=== PATIENT | female | born 1955 | race Caucasian/White ===

== ENCOUNTER 2022-05-28 10:39 | Observation (INO) ==
[2022-05-28] MEDS ORDERED: Lidocaine -MPF 2% 5 ML VIAL ONE (11:45)
[2022-05-28] MEDS ORDERED: *HR* Propofol 200 MG/20 ML VIAL IVP ONE ×3 (11:45→12:38)
[2022-05-28] MEDS ORDERED: CeFAZolin Syr 2,000MG/20 ML 2,000 MG/20 ML SYRINGE IVPB ONE (12:30)
[2022-05-28] MEDS ORDERED: CefOXitin 2,000 MG VIAL ONE (12:41)
[2022-05-28] MEDS ORDERED: *HR* Midazolam HCl 2 MG/2 ML VIAL ONE (12:47)
[2022-05-28] MEDS ORDERED: Ondansetron 4 MG/2 ML VIAL ONE (13:25)
[2022-05-28] MEDS ORDERED: *HR* OxyCODONE/APAP 5/325 TABLET PO PRN ×2 (13:54→14:05)
[2022-05-28] MEDS ORDERED: 0.9 % Sodium Chloride 1,000 ML IVC SCH (13:54)
[2022-05-28] MEDS ORDERED: Iopamidol - 370 500 ML MLS IVP ONE ×3 (13:54→13:56)
[2022-05-28] MEDS ORDERED: Ondansetron 4 MG/2 ML VIAL IVP PRN ×2 (13:54→14:05)
[2022-05-28] MEDS ORDERED: Morphine Sulfate Oral CONC 10 MG/0.5 ML ORAL.SYG SL PRN (13:54)
[2022-05-28] MEDS ORDERED: Naloxone 0.4 MG/ML INJ IVP PRN ×2 (13:54→14:05)
[2022-05-28 15:05] LABS: Basophils % 0.2 %; Eosinophils # 0.2 K/mcL (0.0-0.6); Eosinophils % 3.2 %; Hematocrit 41.3 % (35.3-44.9); Hemoglobin 12.5 g/dL (11.5-15.4); Immature Granulocytes % 0.2 % (0-4); Lymphocytes # 1.3 K/mcL (0.6-4.6); Mean Corpuscular HGB Conc 30.3 g/dL (31.6-35.5); Mean Corpuscular Hemoglobin 25.2 pg (28.0-33.3); Mean Corpuscular Volume 83.3 fL (83.0-100.0); Mean Platelet Volume 11.9 fL (9.4-12.4); Monocytes # 0.5 K/mcL (0.0-1.3); Monocytes % 10.3 %; Neutrophils # 2.7 K/mcL (1.6-8.9); Platelet Count 220 K/mcL (140-400); Red Blood Count 4.96 M/mcL (3.82-4.97); Red Cell Distribution Width 14.7 % (11.5-14.5); Segmented Neutrophils % 58.1 %; White Blood Count 4.7 K/mcL (4.3-11.1)
[2022-05-28] MEDS: 0.9 % Sodium Chloride 1,000 ML IVC SCH (15:10)
[2022-05-28 15:12] LABS: INR 1.1; Prothrombin Time 12.4 Seconds (9.4-12.1)
[2022-05-28] MEDS: Morphine Sulfate Oral CONC 10 MG/0.5 ML ORAL.SYG SL PRN ×2 (15:21→21:22)
[2022-05-28 15:24] LABS: BUN/Creatinine Ratio 14 (6-26); Blood Urea Nitrogen 11 mg/dL (8-23); Calcium 8.3 mg/dL (8.6-10.3); Carbon Dioxide 24 mEq/L (23-29); Chloride 110 mEq/L (98-107); Glucose 81 mg/dL (70-105); Osmolality,Calculated 290 (280-300); Potassium 4.1 mEq/L (3.5-5.1); Sodium 141 mEq/L (136-145); eGFR For African Americans > 60 (> 60); eGFR For Non-African Americans > 60 (> 60)
[2022-05-28] MEDS ORDERED: cefOXitin 1,000 MG in Water for inj. (sterile) 10 ML IVP SCH (16:00)
[2022-05-28] MEDS: ceFAZolin 1,000 MG in 0.9 % Sodium Chloride 10 ML IVP SCH (21:22)
[2022-05-29 02:02] LABS: Basophils % 0.1 %; Eosinophils % 0.1 %; Hematocrit 38.6 % (35.3-44.9); Hemoglobin 12.3 g/dL (11.5-15.4); Immature Granulocytes % 0.3 % (0-4); Lymphocytes # 0.9 K/mcL (0.6-4.6); Lymphocytes % 7.5 %; Mean Corpuscular HGB Conc 31.9 g/dL (31.6-35.5); Mean Corpuscular Hemoglobin 26.2 pg (28.0-33.3); Mean Corpuscular Volume 82.3 fL (83.0-100.0); Mean Platelet Volume 11.6 fL (9.4-12.4); Monocytes # 0.6 K/mcL (0.0-1.3); Neutrophils # 10.4 K/mcL (1.6-8.9); Platelet Count 233 K/mcL (140-400); Red Blood Count 4.69 M/mcL (3.82-4.97); Red Cell Distribution Width 14.7 % (11.5-14.5)
[2022-05-29 02:03] LABS: White Blood Count 11.9 K/mcL (4.3-11.1)
[2022-05-29 02:28] LABS: BUN/Creatinine Ratio 12 (6-26); Blood Urea Nitrogen 10 mg/dL (8-23); Calcium 8.2 mg/dL (8.6-10.3); Carbon Dioxide 25 mEq/L (23-29); Chloride 108 mEq/L (98-107); Glucose 105 mg/dL (70-105); Osmolality,Calculated 287 (280-300); Sodium 139 mEq/L (136-145); eGFR For African Americans > 60 (> 60); eGFR For Non-African Americans > 60 (> 60)
[2022-05-29] MEDS: 0.9 % Sodium Chloride 1,000 ML IVC SCH ×3 (03:03→20:25)
[2022-05-29] MEDS: ceFAZolin 1,000 MG in 0.9 % Sodium Chloride 10 ML IVP SCH ×3 (06:03→20:24)
[2022-05-29] MEDS: Pantoprazole 40 MG VIAL IVP SCH (08:29)
[2022-05-29] MEDS ORDERED: Pantoprazole 40 MG VIAL IVP SCH (09:00)
[2022-05-29] MEDS ORDERED: Acetaminophen 325 MG TABLET PO PRN (10:16)
[2022-05-29] MEDS: BuPROPion SR (12 HR) 100 MG TABLET PO SCH ×2 (11:07→20:24)
[2022-05-29] MEDS: *HR* Heparin 5,000 UNIT/ML VIAL SQ SCH ×2 (12:53→20:25)
[2022-05-29] MEDS ORDERED: *HR* Heparin 5,000 UNIT/ML VIAL SQ SCH (13:13)
[2022-05-29] MEDS: Morphine Sulfate Oral CONC 10 MG/0.5 ML ORAL.SYG SL PRN (23:34)
[2022-05-30 03:00] LABS: Basophils % 0.1 %; Eosinophils % 0.4 %; Hematocrit 35.2 % (35.3-44.9); Hemoglobin 10.9 g/dL (11.5-15.4); Immature Granulocytes % 0.4 % (0-4); Lymphocytes # 1.4 K/mcL (0.6-4.6); Lymphocytes % 15.5 %; Mean Corpuscular Hemoglobin 25.8 pg (28.0-33.3); Mean Corpuscular Volume 83.2 fL (83.0-100.0); Mean Platelet Volume 12.2 fL (9.4-12.4); Monocytes # 0.6 K/mcL (0.0-1.3); Monocytes % 6.6 %; Neutrophils # 7.1 K/mcL (1.6-8.9); Platelet Count 211 K/mcL (140-400); Red Blood Count 4.23 M/mcL (3.82-4.97); Red Cell Distribution Width 14.6 % (11.5-14.5); White Blood Count 9.3 K/mcL (4.3-11.1)
[2022-05-30 03:20] LABS: BUN/Creatinine Ratio 11 (6-26); Blood Urea Nitrogen 8 mg/dL (8-23); Calcium 7.8 mg/dL (8.6-10.3); Carbon Dioxide 25 mEq/L (23-29); Chloride 106 mEq/L (98-107); Glucose 109 mg/dL (70-105); Magnesium 1.9 mg/dL (1.6-2.6); Osmolality,Calculated 281 (280-300); Phosphorous 1.5 mg/dL (2.7-4.5); Potassium 3.5 mEq/L (3.5-5.1); Sodium 136 mEq/L (136-145); eGFR For African Americans > 60 (> 60); eGFR For Non-African Americans > 60 (> 60)
[2022-05-30] MEDS: ceFAZolin 1,000 MG in 0.9 % Sodium Chloride 10 ML IVP SCH ×3 (06:20→21:36)
[2022-05-30] MEDS: Calcium Gluconate 1gm/50mL 1 GM/50 ML BAG IVPB SCH ×2 (09:07→10:17)
[2022-05-30] MEDS: *HR* Heparin 5,000 UNIT/ML VIAL SQ SCH ×2 (09:09→21:37)
[2022-05-30] MEDS: Pantoprazole 40 MG VIAL IVP SCH (09:10)
[2022-05-30] MEDS: 0.9 % Sodium Chloride 1,000 ML IVC SCH (09:24)
[2022-05-30] MEDS ORDERED: Iopamidol - 370 500 ML MLS IVP ONE (09:32)
[2022-05-30] MEDS: BuPROPion SR (12 HR) 100 MG TABLET PO SCH ×2 (09:37→21:45)
[2022-05-31 02:06] LABS: Basophils % 0.1 %; Eosinophils # 0.2 K/mcL (0.0-0.6); Hematocrit 35.9 % (35.3-44.9); Hemoglobin 11.6 g/dL (11.5-15.4); Immature Granulocytes % 0.4 % (0-4); Lymphocytes # 1.9 K/mcL (0.6-4.6); Mean Corpuscular HGB Conc 32.3 g/dL (31.6-35.5); Mean Corpuscular Hemoglobin 25.9 pg (28.0-33.3); Mean Corpuscular Volume 80.1 fL (83.0-100.0); Mean Platelet Volume 11.6 fL (9.4-12.4); Monocytes # 0.7 K/mcL (0.0-1.3); Monocytes % 9.7 %; Neutrophils # 4.2 K/mcL (1.6-8.9); Platelet Count 228 K/mcL (140-400); Red Blood Count 4.48 M/mcL (3.82-4.97); Red Cell Distribution Width 14.6 % (11.5-14.5); Segmented Neutrophils % 59.8 %
[2022-05-31 02:38] LABS: BUN/Creatinine Ratio 10 (6-26); Blood Urea Nitrogen 7 mg/dL (8-23); Calcium 8.4 mg/dL (8.6-10.3); Carbon Dioxide 24 mEq/L (23-29); Chloride 105 mEq/L (98-107); Glucose 85 mg/dL (70-105); Osmolality,Calculated 283 (280-300); Phosphorous 2.7 mg/dL (2.7-4.5); Potassium 3.4 mEq/L (3.5-5.1); Sodium 138 mEq/L (136-145); eGFR For African Americans > 60 (> 60); eGFR For Non-African Americans > 60 (> 60)
[2022-05-31] MEDS: ceFAZolin 1,000 MG in 0.9 % Sodium Chloride 10 ML IVP SCH (04:44)
[2022-05-31] MEDS: BuPROPion SR (12 HR) 100 MG TABLET PO SCH (09:47)
[2022-05-31] MEDS: *HR* Heparin 5,000 UNIT/ML VIAL SQ SCH (09:47)
[2022-05-31] MEDS: Pantoprazole 40 MG VIAL IVP SCH (09:48)
[2022-05-31 10:51] VITALS: BP 128/83; PULSE 78; TEMP 97.6; O2SAT 98
== END 2022-05-31 12:52 | disposition home or self-care (01) ==
LOC: 3BNU 10:39 → ENDPAV 10:39 → 3BNU 13:53 → ENDPAV 13:58 → 3BNU 14:05
PROVIDERS: ADMIT Nurse Practitioner Family; ATTEND Surgery